=== PATIENT | female | born 1940 | race Caucasian/White ===

== ENCOUNTER 2016-09-06 07:54 | Observation (INO) | payer OTHER ==
[~2016-09-06] VITALS: Ht 162.6 cm; Wt 61.2 kg
--- NOTE | 2016-09-06 08:04 | NUR ---
PT TO ED WITH C/O NAUSEA AND VOMITING X 1, GAS AND BLOODY DIARRHEA X 12. PT ON COUMADIN 5MG DAILY FOR AFIB.
--- NOTE | 2016-09-06 08:11 | NUR ---
PT AMBULATORY TO RM 9, CHANGED INTO GOWN
[2016-09-06 08:36] LABS: ABSOLUTE BASOPHIL COUNT 0 /CUMM (0.0-0.2); ABSOLUTE EOSINOPHIL COUNT 0.1 /CUMM (0.0-0.7); ABSOLUTE GRANULOCYTE CT 8.7 /CUMM (1.4-6.5); ABSOLUTE LYMPH COUNT 1.5 /CUMM (1.2-3.4); ABSOLUTE MONOCYTE COUNT 0.9 /CUMM (0.10-0.60); BASOPHIL % 0.4 % (0.0-2.0); EOSINOPHIL % 0.7 % (0-5); GRANULOCYTE % 77.3 % (42.2-75.2); HEMATOCRIT 42.3 % (37-47); MEAN CORPUSCULAR HGB 30.6 PG (27.0-31.0); MEAN CORPUSCULAR HGB CONC 33.4 G/DL (33.0-37.0); MEAN CORPUSCULAR VOLUME 91.8 FL (81.0-99.0); MEAN PLATELET VOLUME 9.2 FL (7.4-10.4); PLATELET COUNT 174 /CUMM (130-400); RBC DISTRIBUTION WIDTH 12.8 % (11.5-14.5); RED BLOOD CELL CT 4.61 /CUMM (4.20-5.40); WHITE BLOOD CELL COUNT 11.3 /CUMM (4.8-10.8)
--- NOTE | 2016-09-06 08:37 | NUR ---
IV INITIATED, LABS DRAWN AND SENT. EKG IN PROGRESS
--- NOTE | 2016-09-06 08:47 | ED GI/GU/ABDOMINAL COMPLAINT ---
History of Present Illness General Chief Complaint: General Adult Stated Complaint: RECTAL BLEED Source: patient, old records Exam Limitations: no limitations Vital Signs & Intake/Output Vital Signs & Intake/Output Vital Signs Date Time Temp Pulse Resp B/P B/P Pulse O2 O2 Flow FiO2 Mean Ox Delivery Rate 09/06 1234 98.8 91 18 143/71 99 09/06 0803 96.3 92 20 151/85 98 Room Air Allergies Coded Allergies: shellfish derived (Severe, ANAPHYLAXIS 09/06/16) Penicillins (Intermediate, RASH 09/06/16) Reconcile Medications Calcium (Elemental-Fr Calcarb) (Calcium Carbonate) 600 MG CALCIUM (1,500 MG) TABLET 2 TAB PO DAILY SUPPLEMENT (Reported) Furosemide 20 MG TABLET 1 TAB PO DAILY WATER RETENTION (Reported) Metoprolol Succinate 100 MG TAB.ER.24H 0.5 TAB PO DAILY HEART (Reported) Multivitamin (Daily Multiple Vitamin) 1 EACH TABLET 1 TAB PO DAILY VITAMIN SUPPORT (Reported) Warfarin Sodium (Coumadin) 2.5 MG TABLET 2 TAB PO SuMoWeThFrSa BLOOD THINNER (Reported) Triage Note: PT TO ED WITH C/O NAUSEA AND VOMITING X 1, GAS AND BLOODY DIARRHEA X 12. PT ON COUMADIN 5MG DAILY FOR AFIB. Triage Nurses Notes Reviewed? yes ? n Is pt currently ? No HPI: Patient presents for evaluation of rectal bleeding that began yesterday. Patient states she initially experienced diffuse abdominal cramps and one episode of vomiting. She then had an onset of diarrhea with blood in it. She states it began as only a small amount but has now increased. She states that her most recent episode there was "quite a lot of blood". She denies any associated chest pain, dyspnea, fever, cold symptoms or prior episodes. She does currently take warfarin for atrial fibrillation. Past History Travel History Traveled to [place] past 21 day No Medical History Any Pertinent Medical History? see below for history Neurological: NONE EENT: allergies Cardiovascular: hypertension Respiratory: NONE Gastrointestinal: NONE Hepatic: NONE Renal: NONE Musculoskeletal: NONE Psychiatric: NONE Endocrine: NONE Blood Disorders: NONE Cancer(s): NONE Surgical History Surgical History: non-contributory Psychosocial History What is your primary language Azeri Tobacco Use: Never used ETOH Use: denies use Illicit Drug Use: denies illicit drug use Family History Hx Contributory? No Review of Systems Review of Systems Constitutional: Reports: no symptoms. EENTM: Reports: no symptoms. Respiratory: Reports: no symptoms. Cardiovascular: Reports: no symptoms. GI: Reports: see HPI. Genitourinary: Reports: no symptoms. Musculoskeletal: Reports: no symptoms. Skin: Reports: no symptoms. Neurological/Psychological: Reports: no symptoms. Hematologic/Endocrine: Reports: no symptoms. Immunologic/Allergic: Reports: no symptoms. All Other Systems: Reviewed and Negative Physical Exam Physical Exam Gastrointestinal: See below Comments: Gen.: Well-nourished, well-developed, no acute respiratory distress. Head: Normocephalic, atraumatic. Eyes: Normal inspection bilaterally Ears: Normal inspection bilaterally Nose: Normal inspection Throat/mouth : Moist mucosa Neck: Supple, full range of motion, no goiter Heart: Regular rate and rhythm, no murmurs rubs or gallops Lungs: Clear to auscultation bilaterally with normal air entry Chest: Nontender Back: Normal range of motion Abdomen: Soft, diffuse mild tenderness without rebound or guarding, nondistended , normal bowel sounds Rectal exam: No apparent hemorrhoids or anal fissures. Dried reddish blood in the area of the rectum and buttock crease. Extremities: Normal range of motion grossly, equal radial pulses, no cyanosis clubbing or edema Neurologic: Cranial nerves grossly intact, speech is clear Skin: warm and dry Psychiatric: Calm, cooperative, no apparent delusions or hallucinations Core Measures ACS in differential dx? No Severe Sepsis Present: No Septic Shock Present: No Progress Differential Diagnosis: ISCHEMIC BOWEL, DIVERTICULAR BLEED, POLYP, CANCER, INTERNAL HEMORRHOID Plan of Care: Orders Procedure Date/time Status Place in observation 09/06 1407 Active Add-on Test (ER Only) 09/06 0846 Active EKG 09/06 0830 Active LIPASE 09/06 0825 Complete PROTHROMBIN TIME 09/06 0824 Complete LACTIC ACID 09/06 08 Complete COMPREHENSIVE METABOLIC PANEL 09/06 0824 Complete CBC WITHOUT DIFFERENTIAL 09/06 08 Complete Laboratory Tests 09/06/16 1124: Lactic Acid Cancelled 09/06/16 0825: Anion Gap 8, Estimated GFR > 60, BUN/Creatinine Ratio 20.0, Glucose 98, Lactic Acid 1.1, Calcium 9.5, Total Bilirubin 1.2, AST 36, ALT 42, Alkaline Phosphatase 62, Total Protein 6.8, Albumin 4.3, Globulin 2.5, Albumin/Globulin Ratio 1.7, Lipase 106, PT 19.0 H, INR 1.82 H, CBC w Diff NO MAN DIFF REQ, RBC 4.61, MCV 91.8, MCH 30.6, RDW 12.8, MPV 9.2, Gran % 77.3 H, Lymphocytes % 13.3 L, Monocytes % 8.3, Eosinophils % 0.7, Basophils % 0.4, Absolute Granulocytes 8.7 H, Absolute Lymphocytes 1.5, Absolute Monocytes 0.9 H, Absolute Eosinophils 0.1 , Absolute Basophils 0, PUBS MCHC 33.4 Diagnostic Imaging: Discussed w/RAD: CT Scan. Radiology Impression: PATIENT: SUGAR BEGUM PRESENT AGE: 76 PATIENT ACCOUNT NO: [id number] : 41 LOCATION: [facility] ORDERING PHYSICIAN: SAWYER WILSON MD SERVICE DATE: 09/06/16 EXAM TYPE: CAT - CT ABD & PELVIS W IV CONTRAST EXAMINATION: CT ABDOMEN AND PELVIS WITH CONTRAST CLINICAL INFORMATION: Diffuse abdominal pain with rectal bleeding. COMPARISON: 11/20/2013 TECHNIQUE: Multidetector volumetric imaging was performed of the abdomen and pelvis before and after the IV administration of 95 mL of Optiray 320 intravenous contrast. Sagittal and coronal reformatted images were obtained on the technologist's workstation. DLP: 288 mGy-cm FINDINGS: LUNG BASES : The lung bases are clear. The heart is enlarged. LIVER, GALLBLADDER, AND BILIARY TREE: The liver is normal in size, shape, and attenuation. No focal hepatic lesion or biliary ductal dilatation is present. The gallbladder is unremarkable with no evidence of radiopaque gallstones, gallbladder wall thickening, or obvious pericholecystic inflammatory changes. PANCREAS: Unremarkable. SPLEEN: Unremarkable. ADRENAL GLANDS: Unremarkable. KIDNEYS AND URETERS: The kidneys are normal in size, shape, and attenuation. No hydronephrosis, hydroureter, or calculi seen. No perinephric stranding. 1 cm left lower pole renal cyst. BLADDER: Unremarkable. GASTROINTESTINAL TRACT: The stomach and small bowel are unremarkable. No dilated loops of bowel or evidence of obstruction. There is colonic wall thickening involving the descending colon and splenic flexure. Adjacent inflammatory appearance. No free air or free fluid. ABDOMINAL WALL: No significant hernia is appreciated. LYMPH NODES: Normal. VASCULAR: Mild atherosclerotic calcification. Circumaortic left renal vein. PELVIC VISCERA: The uterus is not seen. No adnexal mass. OSSEOUS STRUCTURES: No acute or suspicious osseous abnormality. Mild degenerative changes of the spine. IMPRESSION: Wall thickening and inflammation of the descending colon suggestive of a nonspecific colitis, favoring infectious or inflammatory. DICTATED BY: AIDAN MOREL MD DATE/TIME DICTATED:09/06/16920 DIGITAL PRODUCTION ARTIST:EZRA DATE/TIME TRANSCRIBED:09/06/16920 CONFIDENTIAL, DO NOT COPY WITHOUT APPROPRIATE AUTHORIZATION. <Electronically signed in Other Vendor System> SIGNED BY: ADRIEL GALLARDO,AIDAN 09/06/16926 Initial ED EKG: NSR Prior EKG: unchanged Comments: 09/06/2016 11:19:44 AM patient's case discussed with Dr. San feels the patient should be admitted for symptomatic treatment IV fluids and prep for sigmoidoscopy. Departure Departure Disposition: STILL A PATIENT Condition: Stable Clinical Impression Primary Impression: Ischemic colitis Referrals: TOYA GALLARDO,JACQUIE Leach (PCP/Family) Departure Forms: Customer Survey General Discharge Information Observation Note Spoke With: AYDEE GALLARDO,JEANMARIE Physician Advisor Notified: ELVIS GALLARDO,MACO Nguyen Place Patient In: Non-ED OBS Care Area Rationale for Observation: My rational for observation is as follows patient is experiencing ischemic colitis likely due to decrease in blood flow to an area of the bowel. This places the bowel at risk of worsening colitis, bleeding and infarct. In order to prevent this IV fluids should be administered to enhance's intestinal bloodflow and to reverse the colitis. The patient's worsening bloody diarrhea and associated fluid losses has compromised her overall functional capabilities, making her an unreliable outpatient candidate. I feel she would have considerable difficulty in complying with outpatient treatment and may in fact return in worse clinical condition. At this point I feel she needs IV fluids to reestablish intestinal bloodflow and monitoring of intake and output and overall fluid balance. Hematocrit and hemoglobins should be followed for acute blood loss. Vital signs that should be followed for orthostatic hypotension or tachycardia. GI consultation should be obtained for consideration of sigmoidoscopy or colonoscopy.
[2016-09-06] MEDS ORDERED: METOPROLOL SUC100 M2 PO (08:54)
[2016-09-06] MEDS ORDERED: COUMADIN2.5 M1 PO ×2 (08:55)
[2016-09-06] MEDS ORDERED: DAILY MULTIPLE1 EACH PO (08:56)
[2016-09-06] MEDS ORDERED: FUROSEMIDE20 M1 PO (08:56)
[2016-09-06] MEDS ORDERED: CALCIUM CARBON600 M1 PO (08:56)
--- NOTE | 2016-09-06 09:27 | CT SCAN REPORT ---
EXAMINATION: CT ABDOMEN AND PELVIS WITH CONTRAST CLINICAL INFORMATION: Diffuse abdominal pain with rectal bleeding. COMPARISON: 11/20/2013 TECHNIQUE: Multidetector volumetric imaging was performed of the abdomen and pelvis before and after the IV administration of 95 mL of Optiray 320 intravenous contrast. Sagittal and coronal reformatted images were obtained on the technologist's workstation. DLP: 288 mGy-cm FINDINGS: LUNG BASES: The lung bases are clear. The heart is enlarged. LIVER, GALLBLADDER, AND BILIARY TREE: The liver is normal in size, shape, and attenuation. No focal hepatic lesion or biliary ductal dilatation is present. The gallbladder is unremarkable with no evidence of radiopaque gallstones, gallbladder wall thickening, or obvious pericholecystic inflammatory changes. PANCREAS: Unremarkable. SPLEEN: Unremarkable. ADRENAL GLANDS: Unremarkable. KIDNEYS AND URETERS: The kidneys are normal in size, shape, and attenuation. No hydronephrosis, hydroureter, or calculi seen. No perinephric stranding. 1 cm left lower pole renal cyst. BLADDER: Unremarkable. GASTROINTESTINAL TRACT: The stomach and small bowel are unremarkable. No dilated loops of bowel or evidence of obstruction. There is colonic wall thickening involving the descending colon and splenic flexure. Adjacent inflammatory appearance. No free air or free fluid. ABDOMINAL WALL: No significant hernia is appreciated. LYMPH NODES: Normal. VASCULAR: Mild atherosclerotic calcification. Circumaortic left renal vein. PELVIC VISCERA: The uterus is not seen. No adnexal mass. OSSEOUS STRUCTURES: No acute or suspicious osseous abnormality. Mild degenerative changes of the spine. IMPRESSION: Wall thickening and inflammation of the descending colon suggestive of a nonspecific colitis, favoring infectious or inflammatory.
--- NOTE | 2016-09-06 13:37 | Cons- Gastroenterology ---
General Information and HPI Consulting Request Date of Consult: 09/06/16 Requested By: Osman Dimas MD Reason for Consult: Rectal bleeding, colitis on ct scan. Source of Information: patient, old records Exam Limitations: no limitations History of Present Illness: Ms. Santiago is a 76 year old female with a history of afib on coumadin who came into [facility] this morning for rectal bleeding and lower addominal pain. She drove home from her sons house in [place] and on arriving home she developed abdominal pain in her lower abdomen and this was associated with nausea and bilious vomiting. Shortly after the pain started she began having bloody diarrhea. She had about a dozen bloody bowel movements throughout the night and then she came to the ER for further evaluation this morning. Her last bloody bowel movement was this morning and she notes that since arrival to the ER she hasn't had any bowel movements but she has been passing gas. She denies having similar symptoms like this in the past. She has not had any fevers at home, she has not had any sick contacts, she hasn't had any recent foreign travel, been on antibiotics recently and she can't recall anything she may have eaten which may have been improperly prepared. In the ER she has been hemodynamically stable. Allergies/Medications Allergies: Coded Allergies: shellfish derived (Severe, ANAPHYLAXIS 09/06/16) Penicillins (Intermediate, RASH 09/06/16) Home Med List: Calcium (Elemental-Fr Calcarb) (Calcium Carbonate) 600 MG CALCIUM (1,500 MG) TABLET 2 TAB PO DAILY SUPPLEMENT (Reported) Furosemide 20 MG TABLET 1 TAB PO DAILY WATER RETENTION (Reported) Metoprolol Succinate 100 MG TAB.ER.24H 0.5 TAB PO DAILY HEART (Reported) Multivitamin (Daily Multiple Vitamin) 1 EACH TABLET 1 TAB PO DAILY VITAMIN SUPPORT (Reported) Warfarin Sodium (Coumadin) 2.5 MG TABLET 2 TAB PO SuMoWeThFrSa BLOOD THINNER (Reported) Current Medications: Current Medications Sig/Home Start time Last Medication Dose Route Stop Time Status Admin Sodium Chloride 500 ML BOLUS ONE 09/06 0900 DC 09/06 IV 09/06 7588 1726 Past History Travel History Traveled to [place] past 21 day No Medical History Neurological: NONE EENT: allergies Cardiovascular: hypertension Respiratory: NONE Gastrointestinal: NONE Hepatic: NONE Renal: NONE Musculoskeletal: NONE Psychiatric: NONE Endocrine: NONE Blood Disorders: NONE Cancer(s): NONE Surgical History Surgical History: non-contributory Psychosocial History ETOH Use: denies use Illicit Drug Use: denies illicit drug use Review of Systems Review of Systems Constitutional: Denies: fever, malaise, weakness, unexplained weight loss. EENTM: Denies: no symptoms. Cardiovascular: Denies: no symptoms. Respiratory: Denies: no symptoms. GI: Reports: see HPI. Genitourinary: Denies: no symptoms. Musculoskeletal: Denies: no symptoms. Skin: Denies: no symptoms. Neurological/Psychological: Denies: no symptoms. Hematologic/Endocrine: Reports: bleeding. Immunologic/Allergic: Denies: no symptoms. All Other Systems: Reviewed and Negative Exam & Diagnostic Data Vital Signs and I&O Vital Signs Date Time Temp Pulse Resp B/P B/P Pulse O2 O2 Flow FiO2 Mean Ox Delivery Rate 09/06 1234 98.8 91 18 143/71 99 09/06 0803 96.3 92 20 151/85 98 Room Air Intake & Output 09/06 1600 09/06 0400 09/05 1600 09/05 0400 09/04 1600 09/04 0400 Intake Total 500 Output Total Balance 500 Intake, IV 500 Patient 135 lb Weight Weight Reported by Patient Measurement Method Physical Exam General Appearance: well developed/nourished, no apparent distress, alert, comfortable Head: atraumatic, normal appearance Eyes: Bilateral: normal appearance. Ears, Nose, Throat: normal pharynx, normal ENT inspection Neck: normal inspection, supple, full range of motion Respiratory: normal breath sounds, chest non-tender, no respiratory distress Cardiovascular: irregularly irregular Gastrointestinal: normal bowel sounds, soft, tenderness Rectal: deferred Extremities: normal inspection, normal capillary refill, no edema Neurologic/Psych: no motor/sensory deficits, awake, alert, oriented x 3 Skin: intact, normal color, warm/dry Results Pertinent Lab Results: Laboratory Tests 09/06 09/06 1124 0825 Chemistry Sodium (137 - 145 mmol/L) 141 Potassium (3.5 - 5.1 mmol/L) 3.8 Chloride (98 - 107 mmol/L) 106 Carbon Dioxide (22 - 30 mmol/L) 27 Anion Gap (5 - 16) 8 BUN (7 - 17 mg/dL) 14 Creatinine (0.5 - 1.0 mg/dL) 0.7 Estimated GFR (>60 ml/min) > 60 BUN/Creatinine Ratio (7 - 25 %) 20.0 Glucose (65 - 99 mg/dL) 98 Lactic Acid (0.7 - 2.1 mmol/L) Cancelled 1.1 Calcium (8.4 - 10.2 mg/dL) 9.5 Total Bilirubin (0.2 - 1.3 mg/dL) 1.2 AST (14 - 36 U/L) 36 ALT (9 - 52 U/L) 42 Alkaline Phosphatase (<127 U/L) 62 Total Protein (6.3 - 8.2 g/dL) 6.8 Albumin (3.5 - 5.0 g/dL) 4.3 Globulin (1.9 - 4.2 gm/dL) 2.5 Albumin/Globulin Ratio (1.1 - 2.2 %) 1.7 Lipase (23 - 300 U/L) 106 Coagulation PT (9.4 - 12.5 SEC) 19.0 H INR (0.90 - 1.19) 1.82 H Hematology CBC w Diff NO MAN DIFF REQ WBC (4.8 - 10.8 /CUMM) 11.3 H RBC (4.20 - 5.40 /CUMM) 4.61 Hgb (12.0 - 16.0 G/DL) 14.1 Hct (37 - 47 %) 42.3 MCV (81.0 - 99.0 FL) 91.8 MCH (27.0 - 31.0 PG) 30.6 RDW (11.5 - 14.5 %) 12.8 Plt Count (130 - 400 /CUMM) 174 MPV (7.4 - 10.4 FL) 9.2 Gran % (42.2 - 75.2 %) 77.3 H Lymphocytes % (20.5 - 51.1 %) 13.3 L Monocytes % (1.7 - 9.3 %) 8.3 Eosinophils % (0 - 5 %) 0.7 Basophils % (0.0 - 2.0 %) 0.4 Absolute Granulocytes (1.4 - 6.5 /CUMM) 8.7 H Absolute Lymphocytes (1.2 - 3.4 /CUMM) 1.5 Absolute Monocytes (0.10 - 0.60 /CUMM) 0.9 H Absolute Eosinophils (0.0 - 0.7 /CUMM) 0.1 Absolute Basophils (0.0 - 0.2 /CUMM) 0 PUBS MCHC (33.0 - 37.0 G/DL) 33.4 Imaging/Other Studies: SERVICE DATE: 09/06/16 EXAM TYPE: CAT - CT ABD & PELVIS W IV CONTRAST EXAMINATION: CT ABDOMEN AND PELVIS WITH CONTRAST CLINICAL INFORMATION: Diffuse abdominal pain with rectal bleeding. COMPARISON: 11/20/2013 TECHNIQUE: Multidetector volumetric imaging was performed of the abdomen and pelvis before and after the IV administration of 95 mL of Optiray 320 intravenous contrast. Sagittal and coronal reformatted images were obtained on the technologist's workstation. DLP: 288 mGy-cm FINDINGS: LUNG BASES: The lung bases are clear. The heart is enlarged. LIVER, GALLBLADDER, AND BILIARY TREE: The liver is normal in size, shape, and attenuation. No focal hepatic lesion or biliary ductal dilatation is present. The gallbladder is unremarkable with no evidence of radiopaque gallstones, gallbladder wall thickening, or obvious pericholecystic inflammatory changes. PANCREAS: Unremarkable. SPLEEN: Unremarkable. ADRENAL GLANDS: Unremarkable. KIDNEYS AND URETERS: The kidneys are normal in size, shape, and attenuation. No hydronephrosis, hydroureter, or calculi seen. No perinephric stranding. 1 cm left lower pole renal cyst. BLADDER: Unremarkable. GASTROINTESTINAL TRACT: The stomach and small bowel are unremarkable. No dilated loops of bowel or evidence of obstruction. There is colonic wall thickening involving the descending colon and splenic flexure. Adjacent inflammatory appearance. No free air or free fluid. ABDOMINAL WALL: No significant hernia is appreciated. LYMPH NODES: Normal. VASCULAR: Mild atherosclerotic calcification. Circumaortic left renal vein. PELVIC VISCERA: The uterus is not seen. No adnexal mass. OSSEOUS STRUCTURES: No acute or suspicious osseous abnormality. Mild degenerative changes of the spine. IMPRESSION: Wall thickening and inflammation of the descending colon suggestive of a nonspecific colitis, favoring infectious or inflammatory. Assessment/Plan Assessment/Recommendations: Assessment: is a 76-year-old female with history of atrial fibrillation on anticoagulation who presents with acute onset of abdominal pain and bloody diarrhea which is most likely secondary to an attack of ischemic colitis. The diagnosis of ischemic colitis is supported by her history of acute onset of symptoms which are resolving without any signficant interevntions and is associated with inflammation around her splenic flexure on ct scan which is a watershed area susceptible to a low-flow state from dehydrated and subsequently taking her antihypertensive medication. She is currently hemodynamically stable and I suspect she will continue to impove with supportive care. As it has been about 10 years since her last colonoscopy she is due for a full colonoscopy now which I will plan to do as an outpatient and I will also plan to perform a diagnostic flexible sigmoidoscopy while she is here to confirm the diagnosis and rule out any other pathology that may explain her current symptoms such as IBD. Recommendations: 1. Admit to medical service and keep on full liquid diet with nothing red administered and would keep NPO after midnight for a diagnostic flexible sigmoidoscopy to be performed tomorrow. 2. Follow CBC q12hr and transfuse as needed to keep her hgb > 8 3. Hold coumadni for now, but if no active bleeding on flex sig tomorrow will likely recommend restarting it then 4. Notify GI for signs of hemodynamically signficant overt GI bleeding 5. IV hyration and monitory BP and hold anti-hypertensives for any signfiicat hypotension 6. Will tentatively plan to pursue an outpatient colonoscopy I will continue to follow this patient and make further recommendations based on her clinical course and results of her flex sig to be done tomorrow. Copies To: TOYA GALLARDO,JACQUIE Madden. Consult Acknowledgment - Thank you for your consult request.
--- NOTE | 2016-09-06 13:53 | NUR ---
PT RESTING IN BED AT THIS TIME, RESP EVEN AND NONLABORED, EQUAL RISE AND FALL OF THE CHEST AND IN NAD. DENIES DISCOMFORT. AWAITING POC.
--- NOTE | 2016-09-06 14:18 | History & Physical ---
General Information and HPI Source of Information: patient, old records Exam Limitations: no limitations Allergies/Medications Allergies: Coded Allergies: shellfish derived (Severe, ANAPHYLAXIS 09/06/16) Penicillins (Intermediate, RASH 09/06/16) Home Med list Calcium (Elemental-Fr Calcarb) (Calcium Carbonate) 600 MG CALCIUM (1,500 MG) TABLET 2 TAB PO DAILY SUPPLEMENT (Reported) Furosemide 20 MG TABLET 1 TAB PO DAILY WATER RETENTION (Reported) Metoprolol Succinate 100 MG TAB.ER.24H 0.5 TAB PO DAILY HEART (Reported) Multivitamin (Daily Multiple Vitamin) 1 EACH TABLET 1 TAB PO DAILY VITAMIN SUPPORT (Reported) Warfarin Sodium (Coumadin) 2.5 MG TABLET 2 TAB PO SuMoWeThFrSa BLOOD THINNER (Reported) Warfarin Sodium (Coumadin) 2.5 MG TABLET 1.5 TAB PO Tu BLOOD THINNER ( Reported) Past History Travel History Traveled to [place] past 21 day No Medical History Neurological: NONE EENT: allergies Cardiovascular: hypertension Respiratory: NONE Gastrointestinal: NONE Hepatic: NONE Renal: NONE Musculoskeletal: NONE Psychiatric: NONE Endocrine: NONE Blood Disorders: NONE Cancer(s): NONE Surgical History Surgical History: non-contributory Past Family/Social History Psychosocial History ETOH Use: denies use Illicit Drug Use: denies illicit drug use
--- NOTE | 2016-09-06 15:14 | History & Physical ---
KACY BRUSH 09/06/16 1513: General Information and HPI MD Statement: I have seen and personally examined SUGAR SANTIAGO and documented this H&P. The patient is a 76 year old F who presented with a patient stated chief complaint of [abdominal pain and bloody stool]. Source of Information: patient, old records Exam Limitations: no limitations History of Present Illness: Mrs Santiaog is a 76 y/o lady with a PMH of atrial fibrillation on Coumadin, metoprolol for rate control followed by Dr. Mejia and Dr. Mccormick, atrial septal defect status post repair in 1994, Golden's anomaly, osteopenia, bladder cancer status post tumor removal with once a year follow-up at [facility] who presents with complaints of abdominal pain and bloody stool. She returned from a trip to [place] on Tuesday and reports that on her drive back she started experiencing lower abdominal discomfort with what she described as cramping/pinching sensation. Symptoms worsened as the day progressed to constant cramping lower abdominal pain, nonradiating that increased to intensity of 10/10. This was also associated with urge to use the bathroom on one episode of nonbloody emesis, approximately 12 episodes of loose/liquid diarrhea followed by persistent urge to defecate and subsequent passage of bright red/dark red stool with clots. She contacted her PCP who advised her to hold off taking her nightly Coumadin and follow up in the morning if symptoms persist. She denies any sick contacts, new foods out of the ordinary, fevers, chills, dizziness, blurry vision, chest pain, shortness of breath, recurrence of nausea, numbness or weakness in any of her extremities. She does endorse occasional palpitations during this episodes of bloody stool but does have a history of occasional palpitations associated with her atrial fibrillation. Patient endorses a history of occasional constipation well-controlled with diet. Allergies/Medications Allergies: Coded Allergies: shellfish derived (Severe, ANAPHYLAXIS 09/06/16) Penicillins (Intermediate, RASH 09/06/16) Home Med list Calcium (Elemental-Fr Calcarb) (Calcium Carbonate) 600 MG CALCIUM (1,500 MG) TABLET 2 TAB PO DAILY SUPPLEMENT (Reported) Furosemide 20 MG TABLET 1 TAB PO DAILY WATER RETENTION (Reported) Metoprolol Succinate 100 MG TAB.ER.24H 0.5 TAB PO DAILY HEART (Reported) Multivitamin (Daily Multiple Vitamin) 1 EACH TABLET 1 TAB PO DAILY VITAMIN SUPPORT (Reported) Warfarin Sodium (Coumadin) 2.5 MG TABLET 2 TAB PO SuMoWeThFrSa BLOOD THINNER (Reported) Warfarin Sodium (Coumadin) 2.5 MG TABLET 1.5 TAB PO Tu BLOOD THINNER ( Reported) Past History Travel History Traveled to [place] past 21 day No Medical History Neurological: NONE EENT: allergies Cardiovascular: AFIB, atrial septal defect S/P repair in 1994. Golden's anomaly Respiratory: NONE Gastrointestinal: NONE Hepatic: NONE Renal: NONE Musculoskeletal: NONE Psychiatric: NONE Endocrine: osteopenia Blood Disorders: NONE Cancer(s): bladder cancer Surgical History Surgical History: appendectomy, tonsillectomy Past Family/Social History Psychosocial History Where do you live? Home Primary Language: Bengali Smoking Status: Never Smoked ETOH Use: denies use Illicit Drug Use: denies illicit drug use Functional Ability ADLs Independent: dressing, eating, toileting, bathing. Ambulation: independent IADLs Independent: shopping, housework, finances, food prep, telephone, transportation , medication admin. Review of Systems Review of Systems Constitutional: Reports: see HPI. EENTM: Reports: no symptoms. Cardiovascular: Reports: see HPI. Respiratory: Reports: no symptoms. GI: Reports: see HPI. Genitourinary: Reports: no symptoms. Musculoskeletal: Reports: no symptoms. Skin: Reports: no symptoms. Neurological/Psychological: Reports: no symptoms. Hematologic/Endocrine: Reports: no symptoms. Exam & Diagnostic Data Last 24 Hrs of Vital Signs/I&O Vital Signs Date Time Temp Pulse Resp B/P B/P Pulse O2 O2 Flow FiO2 Mean Ox Delivery Rate 09/06 1234 98.8 91 18 143/71 99 09/06 0803 96.3 92 20 151/85 98 Room Air Intake & Output 09/06 1600 09/06 0800 09/06 0000 Intake Total 500 Output Total Balance 500 Intake, IV 500 Patient 135 lb 135 lb Weight Weight Reported by Patient Reported by Patient Measurement Method Physical Exam General Appearance Alert, Cooperative, No Acute Distress Skin No Rashes, No Breakdown Skin Temp/Moisture Exam: Warm/Dry Sepsis Skin Exam (color): Normal for Ethnicity HEENT EOMI, Mucous Membr. moist/pink Cardiovascular Normal S1, Normal S2, irregularly irregular Lungs Clear to Auscultation, Normal Air Movement Abdomen Normal Bowel Sounds, Soft, tenderness appreciated on palpation of both upper left and right quadrants and epigastric regions. Neurological Normal Speech, Normal Tone Extremities No Edema, Normal Pulses Vascular Pulses Symmetrical Diagnostic Data Other Results CT abdomen and pelvis without IV contrast: Wall thickening and inflammation of the descending colon suggestive of a nonspecific colitis, favoring infectious or inflammatory. Assessment/Plan Assessment: 76 y/o lady with a PMH of atrial fibrillation on Coumadin, metoprolol for rate control followed by Dr. Mejia and Dr. Mccormick, atrial septal defect status post repair in 1994, Golden's anomaly, osteopenia, bladder cancer status post tumor removal with once a year follow-up at [facility] who presents with complaints of abdominal pain and bloody stool. Symptoms started on Tuesday with lower abdominal discomfort ascribed as a cramping/pinching sensation that worsened as the day progressed to an intensity of 10/10 that declined to 5/10 on arrival in the ED, persistent cramping, nonradiating, no alleviating/exacerbating factors, subsequently followed by 12 episodes of liquid diarrhea and eventually right red/dark red stool with clots. VS on admission: BP 151/85, HR 92, RR 20, SPO2 98% on RA, T 96.3 Pertinent labs on admission: WBC 11.3, H&H 14.1/42.3, platelets 174K, sodium 141 , potassium 3.8, chloride 106, bicarbonate 27, BUN/CR 14/0.7, glucose 98 INR: 1.82 Problem list: 1. Colitis 2. Bright red blood per rectum 3. History of atrial fibrillation on Coumadin 4. SIRS criteria: HR 92, RR 20 5. History of ASD S/P repair in 1994, Golden's anomaly Plan: * We'll admit to general medicine floor for management of what appears to be a colitis. Etiology could be secondary to dehydration versus embolic event with a subtherapeutic INR versus adhesions with her history of hysterectomy. * We'll start her on maintenance fluid NS at 100 mL an hour. Repeat lactic acid despite a normal initial lactic acid level. Type and screen * Clear liquids per recommendation of gastroenterolog (Dr. San). If worsening pain, will make the patient NPO. If patient spikes fever, obtained blood cultures and consider empiric treatment with ceftriaxone and metronidazole * Will contact Dr. Mejia to obtain the latest echocardiogram. We'll also obtain his recommendations with regards to maintaining subtherapeutic INR versus bridging with heparin. Status post procedure, Coumadin dosing for INR between 2 and 3 * Holding furosemide and metoprolol at this time. If patient does become tachycardic we'll give her half her normal dose of metoprolol succinate for rate control while monitoring blood pressure * Heart healthy diet * DVT prophylaxis: Currently on Coumadin. ALPs * Full code As Ranked By This Provider Problem List: 1. Ischemic colitis 2. BRBPR (bright red blood per rectum) 3. A-fib 4. SIRS (systemic inflammatory response syndrome) Core Measures/Miscellaneous Acute Coronary Syndrome ACS Diagnosis: No Cerebrovascular Accident CVA/TIA Diagnosis: No Congestive Heart Failure CHF Diagnosis: No VTE (View Protocol) VTE Risk Factors: Age > 40 No [facility] VTE prophylaxis d/t: No contraindications No VTE Pharm Prophylaxis d/t: No contraindications VTE Diagnosis: No VTE Type: NONE VTE Confirmed by (Test): NONE Sepsis (View Protocol) Severe Sepsis Present: No Septic Shock Septic Shock Present: No Miscellaneous Documentation Attending Case Discussed With: JEANMARIE BAJWA MD Primary Care Physician: JACQUIE PITTMAN MD Patient sees these Specialists Dr San Level of Patient Care: General Medicine Resident Review Statement Resident Statement: examined this patient, discussed with tech intern, agreed with tech intern, discussed with family, reviewed EMR data (avail), discussed with nursing , reviewed images JEANMARIE BAJWA MD 09/06/161914: Attending MD Review Statement Attending Statement Attending MD Statement: examined this patient, discuss w/resident/PA/AIR QUALITY CONSULTANT, agreed w/resident/PA/AIR QUALITY CONSULTANT, reviewed EMR data (avail) Attending Assessment/Plan: 76F PMH atrial fibrillation on Coumadin, ASD s/p repair in 1994, Golden's anomaly, osteopenia, bladder cancer status post tumor removal presenting with one day of bloody diarrhea. Patient currently feels well aside from a sensation of abdominal bloating. She had 12 episodes of loose stools over the past 2 days which became more and more bloody. Recently traveled to [place]. Did not drink unsafe water or swim in lakes. She currently feels well overall, is afebrile, normal vitals, labs unremarkable. CT abdomen is suspicious for colitis. 1. Colitis 2. Hematochezia Plan - Observation in general medicine - GI consult - Full liquid diet, NPO overnight - Fleet enema x2 tomorrow morning - Flexible sigmoidoscopy tomorrow - Follow GI recommendations - Monitor CBC q8h - Hold off antibiotics for now, if febrile, hemodynamically unstable, or leukocytosis will start antibiotics - Continue home medications, hold anti-coagulation and anti-hypertensives - ALPS for DVT PPx Observation status justified as patient will require short term CBC monitoring and flexible sigmoidoscopy tomorrow, likely discharge post-procedure if hemodynamcailly stable and no further bleeding or drop in Hct.
--- NOTE | 2016-09-06 16:17 | NUR ---
ADMISSION FLUIDS HUNG AT 75ML/HR PER APR.
--- NOTE | 2016-09-06 16:20 | NUR ---
NEFF AND PINK DRAWN AND SENT TO LAB
--- NOTE | 2016-09-06 19:00 | NUR ---
PT TO 210 BED 1
--- NOTE | 2016-09-06 19:30 | NUR ---
PT ASKED ABOUT FOOD. DR. MOORE PAGED AT #[phone] TWICE TO OBTAIN DIET ORDER.
--- NOTE | 2016-09-06 19:33 | NUR ---
PT AMBULATORY TO BATHROOM WITH STEADY GAIT AND ADMISSION FLUIDS RUNNING. HAVE PAGED MD FOR DIET ORDER PER PT REQUEST.
--- NOTE | 2016-09-06 19:42 | NUR ---
REPORT TO CHRISTAL BARAJAS AND ANSWERED ALL QUESTIONS. PT GCS 15. TRANSPORTED BOOKED.
[2016-09-06 20:04] VITALS: BP 138/92
--- NOTE | 2016-09-06 22:59 | NUR ---
PT ARRIVED TO FLOOR VIA STRETCHER, AMBULATED TO BED WITHOUT ASSISTANCE, IVF INFUSING PER ORDERS, VSS. ORDER RECIEVED FOR CLEAR LIQUID DIET, NURSE SENIOR APPLICATIONS ANALYST TO GET PT TRAY. PER ER REPORT PT GOING FOR SIGMOIDOSCOPY TOMORROW. PT TO BE MADE NPO AT MIDNIGHT, DOCUMENT PHOTOGRAPHER QUESTIONED TO WHETHER PT NEEDS PREP PRIOR TO GOING. WILL CONTINUE TO MONITOR.
[2016-09-07 06:42] VITALS: BP 140/92
--- NOTE | 2016-09-07 07:17 | PN- Housestaff ---
See Addendum Subjective Follow-up For: Colitis Subjective: Patient was stable this morning. She took tylynol at night for abdominal pain and was able to sleep through the night. Denies any overnight events, fever, chills, nausea, vomiting, SOB or chest pain. she does report 2 bowel movements similar to the ones she had at home. Review of Systems Constitutional: Denies: no symptoms. EENTM: Denies: no symptoms. Cardiovascular: Denies: no symptoms. Respiratory: Denies: no symptoms. Gastrointestinal: Reports: diarrhea. Genitourinary: Denies: no symptoms. Musculoskeletal: Denies: no symptoms. Skin: Denies: no symptoms. Neurological/Psychological: Denies: no symptoms. Objective Last 24 Hrs of Vital Signs/I&O Vital Signs Date Time Temp Pulse Resp B/P B/P Pulse O2 O2 Flow FiO2 Mean Ox Delivery Rate 09/07 1433 98.0 99 18 142/78 98 Room Air 09/07 1222 98.4 98 20 118/76 100 Room Air 09/07 0642 97.8 67 20 140/92 97 Room Air 09/06 2004 98.1 81 19 138/92 97 09/06 1941 82 16 135/87 98 Room Air 09/06 1759 98.8 94 16 135/71 99 Room Air Intake & Output 09/07 1600 09/07 0800 09/07 0000 Intake Total 600 600 150 Output Total Balance 600 600 150 Intake, IV 600 600 150 Number 2 0 Bowel Movements Patient 135 lb 135 lb Weight Weight Reported by Patient Measurement Method Physical Exam General Appearance: Alert, Oriented X3, Cooperative, No Acute Distress Skin: No Rashes, No Breakdown Sepsis Skin Exam (color): Normal for Ethnicity HEENT: Atraumatic, PERRLA, EOMI, Mucous Membr. moist/pink Neck: Supple, No JVD, No thryomegaly Cardiovascular: Normal S1, Normal S2 Lungs: Clear to Auscultation, Normal Air Movement Abdomen: Normal Bowel Sounds, Soft Neurological: Normal Gait, Normal Speech, Strength at 5/5 X4 Ext, Normal Tone, Sensation Intact Extremities: No Clubbing, No Cyanosis, No Edema, Normal Pulses Current Medications: Current Medications Sig/Home Start time Last Medication Dose Route Stop Time Status Admin Acetaminophen 650 MG Q6P PRN 09/06 1500 AC 09/06 PO 2019 Calcium Carbonate 1,250 MG DAILY 09/07 1000 AC PO Chlorhexidine 1 GM .STK-MED ONE 09/07 1434 DC Gluconate TOP 09/07 1435 Multivitamins 1 TAB DAILY 09/07 1000 AC Therapeutic PO Oxycodone/ 1 TAB Q6P PRN 09/06 1500 AC Acetaminophen PO Oxycodone/ 2 TAB Q6P PRN 09/06 1500 AC Acetaminophen PO Patient Medication 1 ED .STK-MED ONE 09/07 1426 DC Teaching ED 09/07 1427 Sodium Chloride 1,000 ML Q13H 09/06 1545 DC 09/07 IV 0911 Sodium Phosphate 1 UNIT ONCE ONE 09/07 0930 DC 09/07 CA 09/07 0931 1122 Sodium Phosphate 1 UNIT ONCE ONE 09/07 0930 DC 09/07 CA 09/07 0931 1204 Warfarin Sodium 5 MG [id number]@[id number] 09/08 1700 CAN PO Warfarin Sodium 7.5 MG ONCE ONE 09/07 1700 AC PO 09/07 1701 Last 24 Hrs of Lab/Hira Results Last 24 Hrs of Labs/Mics: Laboratory Tests 09/07/16 0715: PT 15.9 H, INR 1.52 H, CBC w Diff NO MAN DIFF REQ, RBC 4.37, MCV 92.9, MCH 30.8, RDW 13.1, MPV 9.4, Gran % 70.2, Lymphocytes % 18.7 L, Monocytes % 8.1, Eosinophils % 2.4, Basophils % 0.6, Absolute Granulocytes 4.8, Absolute Lymphocytes 1.3, Absolute Monocytes 0.6, Absolute Eosinophils 0.2, Absolute Basophils 0, PUBS MCHC 33.1 09/06/16 1617: Lactic Acid 0.8 Assessment/Plan Assessment: Colitis: Etiology could be secondary to dehydration versus embolic event with a subtherapeutic INR versus adhesions with her history of hysterectomy. * patient was started on maintenance fluid NS at 100 mL an hour. Repeat lactic acid despite a normal initial lactic acid level. Type and screen * Clear liquids per recommendation of gastroenterolog (Dr. San). If patient spikes fever, obtained blood cultures and consider empiric treatment with ceftriaxone and metronidazole. * S/P sigmoidoscopy(09/07/2016): Impression: 1. Findings consistent with mild/resolving ischemic colitis status post biopsies. 2. Sigmoid diverticulosis. 3. Small internal hemorrhoids. 4. Solid stool in the proximal transverse colon as patient only received enemas for preparation so the scope was not advanced further. Patient will be following up with Dr. San for the biopsy report and also set up an appointment for outpatient colonoscopy. History of atrial fibrillation on Coumadin Pertinent information was obtained from Dr. Mejia regarding the latest echocardiogram. Her INR today is 1.52. we will give her 1 dose of 7.5mg coumadin and continue with her home dose of 5mg on discharge. Patient was told to repeat her INR in 3 days and follow up with Dr. Mejia within a week. Hypertension: Her antihypertensive meds were held in context of bleeding per rectum. Will restart her home dose today. History of ASD S/P repair in 1994, Golden's anomaly Problem List: 1. Ischemic colitis 2. BRBPR (bright red blood per rectum) 3. A-fib Pain Ratin Pain Location: Abdomen Pain Goal: Remain pain free Pain Plan: Pain Pathway Tomorrow's Labs & Rationales: None(Discharge)
--- NOTE | 2016-09-07 07:17 | PN- Student ---
Subjective Subjective: She slept fairly well but had a lot of Afib overnight. She had no bowel movements but when she passed flatus she was not seeing any blood. Aside from liquids that she was given as part of her diet plan she has not eaten anything. Today she is due for a sigmoidscopy. Objective Objective: Physical exam: Vitals: 6:00 am: Temp(oral): 97.2, RR:18, O2stat: 97RA, BP: 151/67, pulse rate: 92. General appearance: CV: Irregularly, iregular rhythm, Normal S1,S2, No R/G, 2/6 murmur on left sternal border Lungs:CTA BL Abd: Ext: Results Results: Laboratory Tests 09/06/16 1617: Lactic Acid 0.8 09/06/16 1124: Lactic Acid Cancelled 09/06/16 0825: Anion Gap 8, Estimated GFR > 60, BUN/Creatinine Ratio 20.0, Glucose 98, Lactic Acid 1.1, Calcium 9.5, Total Bilirubin 1.2, AST 36, ALT 42, Alkaline Phosphatase 62, Total Protein 6.8, Albumin 4.3, Globulin 2.5, Albumin/Globulin Ratio 1.7, Lipase 106, PT 19.0 H, INR 1.82 H, CBC w Diff NO MAN DIFF REQ, RBC 4.61, MCV 91.8, MCH 30.6, RDW 12.8, MPV 9.2, Gran % 77.3 H, Lymphocytes % 13.3 L, Monocytes % 8.3, Eosinophils % 0.7, Basophils % 0.4, Absolute Granulocytes 8.7 H, Absolute Lymphocytes 1.5, Absolute Monocytes 0.9 H, Absolute Eosinophils 0.1 , Absolute Basophils 0, PUBS MCHC 33.4 Assessment/Plan Assessment: 76 yo female with a PMH of atrial fibrillation treated with Coumadin and metoprolol, atrial septal defect status post repair in 1994, Golden's anomaly, osteopenia, bladder cancer status post removal with complaints of abdominal pain and bloody stool. Symptoms started 1 day prior to admission with gradually worsening lower abdominal cramping reaching a 10/10 intesity. This was followed by 12 episodes of liquid diarrhea and eventually red/dark red stool with clots. On arrival to the ED, the cramping was non-radiating, 5/10. She has not tried any medications and there are no exacerbating factors. VS on admission: BP 151/85, HR 92, RR 20, SPO2 98% on RA, T 96.3 Pertinent labs on admission: WBC 11.3, H&H 14.1/42.3, platelets 174K, sodium 141 , potassium 3.8, chloride 106, bicarbonate 27, BUN/CR 14/0.7, glucose 98 INR: 1.82 Plan: 1. SIRS criteria: HR 92, RR 20, colitis, and bright red blood per rectum: DDx: secondary to dehydration, embolic event with a subtherapeutic INR, adhesions related to abd. surgery (hysterectomy, bladder tumor removal. -maintenance fluid NS at 100 mL an hour. Repeat lactic acid despite a normal initial lactic acid level. Type and screen -Clear liquids per recommendation of gastroenterolog (Dr. San). If worsening pain, will make the patient NPO. -If patient spikes fever, obtained blood cultures and consider empiric treatment with ceftriaxone and metronidazole -Heart healthy diet once Dr. San gives approval for diet advancement 2. History of atrial fibrillation on Coumadin -Consult Dr. Mejia to obtain the latest echocardiogram. We'll also obtain his recommendations with regards to maintaining subtherapeutic INR versus bridging with heparin. Status post procedure, Coumadin dosing for INR between 2 and 3 -Holding furosemide and metoprolol at this time. If patient does become tachycardic we'll give her half her normal dose of metoprolol succinate for rate control while monitoring blood pressure 3. History of ASD S/P repair in 1994, Golden's anomaly 4. DVT prophylaxis: Currently on Coumadin. ALPs 5. Full code
[2016-09-07 08:38] LABS: ABSOLUTE BASOPHIL COUNT 0 /CUMM (0.0-0.2); ABSOLUTE EOSINOPHIL COUNT 0.2 /CUMM (0.0-0.7); ABSOLUTE GRANULOCYTE CT 4.8 /CUMM (1.4-6.5); ABSOLUTE LYMPH COUNT 1.3 /CUMM (1.2-3.4); ABSOLUTE MONOCYTE COUNT 0.6 /CUMM (0.10-0.60); BASOPHIL % 0.6 % (0.0-2.0); EOSINOPHIL % 2.4 % (0-5); GRANULOCYTE % 70.2 % (42.2-75.2); HEMATOCRIT 40.6 % (37-47); MEAN CORPUSCULAR HGB 30.8 PG (27.0-31.0); MEAN CORPUSCULAR HGB CONC 33.1 G/DL (33.0-37.0); MEAN CORPUSCULAR VOLUME 92.9 FL (81.0-99.0); MEAN PLATELET VOLUME 9.4 FL (7.4-10.4); PLATELET COUNT 135 /CUMM (130-400); RBC DISTRIBUTION WIDTH 13.1 % (11.5-14.5); RED BLOOD CELL CT 4.37 /CUMM (4.20-5.40); WHITE BLOOD CELL COUNT 6.9 /CUMM (4.8-10.8)
[2016-09-07 08:39] LABS: PT 15.9 SEC (9.4-12.5)
--- NOTE | 2016-09-07 08:54 | NUR ---
LATE ENTRY: PT REPORTS SHE ONLY TAKES ONE CAPSULE- 300 MG, OF GABAPENTIN BID. PT ORDERED 2 CAPSULES IN AM -600 MG AND [address] ROGERS NOTIFIED OF ABOVE. SNO. WILL CONT TO MONITOR.
--- NOTE | 2016-09-07 11:49 | Patient Discharge Instructions ---
Discharge Instructions General Discharge Information You were seen/treated for: Colitis Bright red blood per rectum Watch for these problems: Recurrent bloody stool, dizziness, blurry vision, chest pain or palpitations. Special Instructions: Please follow up with Dr. San for biopsy reports and make an appointment for outpatient colonoscopy. Please follow up with your PCP in 1 week. Recheck INR levels this tuesday and follow up with Dr. Mejia within a week. Diet Continue normal diet: Yes Activity Full Activity/No Limits: Yes (As tolerated) Acute Coronary Syndrome Inclusion Criteria At DC or during hospital stay patient has or had the following: ACS DIAGNOSIS No Discharge Core Measures Meds if any: Prescribed or Continued at Discharge CHARMAINE/ARB if EF <40% No Meds if any: NOT Prescribed or Continued at Discharge Congestive Heart Failure Inclusion Criteria At DC or during hospital stay patient has or had the following: CHF DIAGNOSIS No Discharge Core Measures Meds if any: Prescribed or Continued at Discharge Meds if any: NOT Prescribed or Continued at Discharge Cerebrovascular accident Inclusion Criteria At DC or during hospital stay patient has or had the following: CVA/TIA Diagnosis No Discharge Core Measures Meds if any: Prescribed or Continued at Discharge Meds if any: NOT Prescribed or Continued at Discharge Venous thromboembolism Inclusion Criteria VTE Diagnosis No VTE Type NONE VTE Confirmed by (Test) NONE Discharge Core Measures - Per Current guidelines, there needs to be overlap - treatment for the first 5 days of Warfarin therapy. - If discharged on Warfarin prior to 5 days of - overlap therapy, the patient will need to be - assessed for post discharge needs including - *Post discharge parental anticoagulation - *Warfarin and/or parental anticoagulation education - *Follow up date to check INR post discharge At least 5 days overlap therapy as Inpatient No Meds if any: Prescribed or Continued at Discharge Note: Overlap Therapy is Warfarin and Anticoagulant Meds if any: NOT Prescribed or Continued at Discharge
[2016-09-07 12:22] VITALS: BP 118/76
--- NOTE | 2016-09-07 12:25 | NUR ---
PT OFF THE FLOOR FOR SCHEDULED FLEX SIG PROCEDURE. PENDING RETURN TO FLOOR.
--- NOTE | 2016-09-07 13:38 | Proc Note Colonoscopy ---
Colonoscopy Procedure Medical History: unchanged (see meditech consult) Mental Status: alert/oriented Heart/Lung Eval Prior to Sedation: within normal limits Candidate for Sedation? Yes Date of Last Colonoscopy: Approximately 10 years ago. Procedure Date: 09/07/16 Procedure Type: colonoscopy w/biopsy Control Systems Specialist: Israel San MD ASA Classification: III Indications: Rectal bleeding, colitis on CAT scan. Instrument (Colonoscope): single channel Meds Received: MAC Patient's Tolerance: good Complications: none Extent Reached: proximal transverse colon Prep: good Procedure: After getting written informed consent the patient was placed in the left lateral decubitus position with pulse oximetry, cardiac monitoring, and supplemental oxygen was given. IV sedation was given until the desired effect was achieved. A rectal exam was performed which [was normal]. A high definition variable stiffness Olympus colonoscope was then inserted into the anus and advanced to the proximal transverse colon with little difficulty. Retroflexed views were obtained and photodocumentation was obtained. Close inspection of the colonic mucosa was performed on insertion and withdrawal of the colonoscope with a withdrawal time that was adequate in length to closely inspect all folds and isbell of the colon. Findings: Starting at approximately 30 cm from the anus and extending to approximately 50 cm from the anus there were patchy erythematous changes with an overlying exudate, but there were no deep ulcerations appreciated. The colonic mucosa up to 30 cm and proximal to 50 cm was grossly normal in appearance. There was solid stool appreciated in the proximal sigmoid colons the scope was not advanced further. There were a few scattered diverticula appreciated in the sigmoid colon. The remainder of the visualized colonic mucosa was grossly unremarkable. Biopsies were obtained from the distal transverse colon, and from the areas of inflammation at 30-50 cm from the anus and in the distal sigmoid colon with cold biopsy forceps and were sent to pathology for further evaluation. Retroflexed views in the rectum revealed small internal hemorrhoids. Impression: 1. Findings consistent with mild/resolving ischemic colitis status post biopsies. 2. Sigmoid diverticulosis. 3. Small internal hemorrhoids. 4. Solid stool in the proximal transverse colon as patient only received enemas for preparation so the scope was not advanced further. Recommendations: 1. Her diet should be advanced as tolerated. 2. She should follow up the pathology results me as an outpatient. 3. She was asked to follow-up in the office with me in 2-4 weeks to arrange for a full colonoscopy for screening purposes. 4. If there are no other active issues and she is tolerating a diet consideration should be given to discharge her home later today or in the a.m. 5. There are no absolute contraindications to resuming anticoagulation if medically indicated. Followup Colonscopy Screen In: 1-2 months CC: TOYA GALLARDO,JACQUIE Leach
--- NOTE | 2016-09-07 14:09 | Discharge Summary ---
Visit Information Visit Dates Admission Date: 09/06/16 Discharge Date: 09/07/16 Hospital Course Course Attending Physician: JEANMARIE BAJWA MD Primary Care Physician: JACQUIE PITTMAN MD Hospital Course: 76 y/o lady with a PMH of atrial fibrillation on Coumadin, metoprolol for rate control followed by Dr. Ross and Dr. Mccormick, atrial septal defect status post repair in 1994, Golden's anomaly, osteopenia, bladder cancer status post tumor removal with once a year follow-up at [facility] who presents with complaints of abdominal pain and bloody stool. Symptoms started on Tuesday with lower abdominal discomfort ascribed as a cramping/pinching sensation that worsened as the day progressed to an intensity of 10/10 that declined to 5/10 on arrival in the ED, persistent cramping, nonradiating, no alleviating/exacerbating factors, subsequently followed by 12 episodes of liquid diarrhea and eventually right red/dark red stool with clots. VS on admission: BP 151/85, HR 92, RR 20, SPO2 98% on RA, T 96.3 Pertinent labs on admission: WBC 11.3, H&H 14.1/42.3, platelets 174K, sodium 141 , potassium 3.8, chloride 106, bicarbonate 27, BUN/CR 14/0.7, glucose 98 INR: 1.82 CT Abd and Pelvis: IMPRESSION: Wall thickening and inflammation of the descending colon suggestive of a nonspecific colitis, favoring infectious or inflammatory. Patient was admitted to general medicine floor and treated for following problems Problem list: 1. Colitis 2. Bright red blood per rectum 3. History of atrial fibrillation on Coumadin 4. SIRS criteria: HR 92, RR 20 5. History of ASD S/P repair in 1994, Golden's anomaly Colitis: Etiology could be secondary to dehydration versus embolic event with a subtherapeutic INR versus adhesions with her history of hysterectomy. * patient was started on maintenance fluid NS at 100 mL an hour. Repeat lactic acid was done despite a normal initial lactic acid level. Type and screen done. * Patient was on Clear liquids per recommendation of gastroenterolog (Dr. San) . * S/P sigmoidoscopy(09/07/2016): Impression: 1. Findings consistent with mild/resolving ischemic colitis status post biopsies. 2. Sigmoid diverticulosis. 3. Small internal hemorrhoids. 4. Solid stool in the proximal transverse colon as patient only received enemas for preparation so the scope was not advanced further. Post prodecudre patient was started on regular diet which she tolerated well. Patient will be following up with Dr. San for the biopsy report and also set up an appointment for outpatient colonoscopy. History of atrial fibrillation on Coumadin Pateint usually follow up with for her A.fib. Her INR on discharge day was 1.52. She was given 1 dose of 7.5mg coumadin and was continue with her home dose of 5mg on discharge. Patient was told to repeat her INR in 3 days and follow up with Dr. Ross within a week. Hypertension: Her antihypertensive meds were held in context of bleeding per rectum. Medicines were statred post procedure and patient was discharged on home dose of her antihypertensive meds. History of ASD S/P repair in 1994, Golden's anomaly Allergies: Coded Allergies: shellfish derived (Severe, ANAPHYLAXIS 09/06/16) Penicillins (Intermediate, RASH 09/06/16) Disposition Summary Disposition Principal Diagnosis: Colitis Additional Diagnosis: Atrial Fibrillation Hypertension Discharge Disposition: home or self care Discharge Instructions General Discharge Information Code Status: Full Code Patient's Diet: Heart Healthy Diet Patient's Activity: As Tolerated. Follow-Up Instructions/Appts: Please follow up with Dr. San for biopsy reports and make an appointment for outpatient colonoscopy. Please follow up with your PCP in 1 week. Recheck INR levels this tuesday and follow up with Dr. Ross within a week. Medications at Discharge Discharge Medications: Stop taking the following medications: Warfarin Sodium (Coumadin) 2.5 MG TABLET ORAL Tu Continue taking these medications: Metoprolol Succinate (Metoprolol Succinate) 100 MG TAB.ER.24H 0.5 Tablet ORAL DAILY Qty = 90 Comments: NOT GIVEN Warfarin Sodium (Coumadin) 2.5 MG TABLET 2 Tablet ORAL SuMoWeThFrSa Qty = 180 Comments: SEE OTHER DOCUMENTATION Calcium (Elemental-Fr Calcarb) (Calcium Carbonate) 600 MG CALCIUM (1,500 MG) TABLET 2 Tablet ORAL DAILY Comments: NOT GIVEN Multivitamin (Daily Multiple Vitamin) 1 EACH TABLET 1 Tablet ORAL DAILY Comments: NOT GIVEN Furosemide (Furosemide) 20 MG TABLET 1 Tablet ORAL DAILY Qty = 40 Comments: NOT GIVEN Copies To: TOYA GALLARDO,JACQUIE Leach; Demetrio ROSS MD; ARTIS GALLARDO,ANDRESSA Guzman MD Review Statement Documenting Attending: AYDEE GALLARDO,JEANMARIE
--- NOTE | 2016-09-07 14:19 | NUR ---
PT ARRIVED BACK TO FLOOR. NO DISTRESS. SEE VFS FOR VS. PENDING POSSIBLE D/C TODAY. WILL CONT TO MONITOR.
[2016-09-07 14:33] VITALS: BP 142/78
--- NOTE | 2016-09-07 14:46 | Cons- Cardiology ---
General Information and HPI Consulting Request Date of Consult: 09/07/16 Requested By: JEANMARIE BAJWA MD Reason for Consult: Atrial fibrillation History of Present Illness: The patient is a 76-year-old female who is followed in the office by Dr. Mejia with history of atrial fibrillation, Ebstein's anomaly, atrial septal defect status post repair, bladder cancer status post resection. He presented with complaint of abdominal discomfort and GI bleed. She had recent diarrhea with recurrent episodes of red stool followed by maroon-colored stool. She stopped taking warfarin 2 days prior to admission because of the bleeding. Colonoscopy was performed today which revealed evidence of mild/resolving ischemic colitis. She reports that she is feeling better. No chest pain. No shortness of breath. No diaphoresis. Allergies/Medications Allergies: Coded Allergies: shellfish derived (Severe, ANAPHYLAXIS 09/06/16) Penicillins (Intermediate, RASH 09/06/16) Home Med List: Calcium (Elemental-Fr Calcarb) (Calcium Carbonate) 600 MG CALCIUM (1,500 MG) TABLET 2 TAB PO DAILY SUPPLEMENT (Reported) Furosemide 20 MG TABLET 1 TAB PO DAILY WATER RETENTION (Reported) Metoprolol Succinate 100 MG TAB.ER.24H 0.5 TAB PO DAILY HEART (Reported) Multivitamin (Daily Multiple Vitamin) 1 EACH TABLET 1 TAB PO DAILY VITAMIN SUPPORT (Reported) Warfarin Sodium (Coumadin) 2.5 MG TABLET 2 TAB PO SuMoWeThFrSa BLOOD THINNER (Reported) Warfarin Sodium (Coumadin) 2.5 MG TABLET 1.5 TAB PO Tu BLOOD THINNER ( Reported) Current Medications: Current Medications Sig/Home Start time Last Medication Dose Route Stop Time Status Admin Acetaminophen 650 MG Q6P PRN 09/06 1500 AC 09/06 PO 2019 Calcium Carbonate 1,250 MG DAILY 09/07 1000 AC PO Multivitamins 1 TAB DAILY 09/07 1000 AC Therapeutic PO Oxycodone/ 1 TAB Q6P PRN 09/06 1500 AC Acetaminophen PO Oxycodone/ 2 TAB Q6P PRN 09/06 1500 AC Acetaminophen PO Patient Medication 1 ED .STK-MED ONE 09/07 1426 DC Teaching ED 09/07 1427 Sodium Chloride 1,000 ML Q13H 09/06 1545 DC 09/07 IV 0911 Sodium Phosphate 1 UNIT ONCE ONE 09/07 0930 DC 09/07 NH 09/07 0931 1122 Sodium Phosphate 1 UNIT ONCE ONE 09/07 0930 DC 09/07 NH 09/07 0931 1204 Warfarin Sodium 5 MG Katey@1700 09/08 1700 CAN PO Warfarin Sodium 7.5 MG ONCE ONE 09/07 1430 UNVr PO 09/07 1431 Review of Systems Review of Systems: No rash. No tremor. No syncope. All other systems were reviewed, and were noted to be negative. Past History Travel History Traveled to [place] past 21 day No Medical History Blood Transfusion Hx: Yes Neurological: NONE EENT: allergies Cardiovascular: AFIB, atrial septal defect S/P repair in 1994. Golden's anomaly Respiratory: NONE Gastrointestinal: NONE Hepatic: NONE Renal: NONE Musculoskeletal: NONE Psychiatric: NONE Endocrine: osteopenia Blood Disorders: NONE Cancer(s): bladder cancer Surgical History Surgical History: appendectomy, tonsillectomy Family History Family History Reviewed? Family history is negative for premature coronary artery disease Psychosocial History Where Do You Live? Home Primary Language: Japanese Smoking Status: Never Smoked ETOH Use: denies use Illicit Drug Use: denies illicit drug use Functional Ability ADLs Independent: dressing, eating, toileting, bathing. Ambulation: independent IADLs Independent: shopping, housework, finances, food prep, telephone, transportation , medication admin. Exam & Diagnostic Data Vital Signs and I&O Vital Signs Date Time Temp Pulse Resp B/P B/P Pulse O2 O2 Flow FiO2 Mean Ox Delivery Rate 09/07 1433 98.0 99 18 142/78 98 Room Air 09/07 1222 98.4 98 20 118/76 100 Room Air 09/07 0642 97.8 67 20 140/92 97 Room Air 09/06 2004 98.1 81 19 138/92 97 09/06 1941 82 16 135/87 98 Room Air 09/06 1759 98.8 94 16 135/71 99 Room Air 09/06 1527 98.1 93 15 152/100 99 Room Air Intake & Output 09/07 1600 09/07 0800 09/07 0000 09/06 1600 09/06 0800 09/06 0000 Intake Total 600 150 500 Output Total Balance 600 150 500 Intake, IV 600 150 500 Number 0 Bowel Movements Patient 135 lb 135 lb 135 lb Weight Weight Reported by Patient Reported by Patient Reported by Patient Measurement Method Physical Exam: Gen: The patient is in no acute distress HEENT: Normal nose, ears, and oropharynx. Pupils equal bilaterally. Conjunctiva normal. Neck: Supple with no JVD, no masses, and no thyromegaly Lungs: Clear to auscultation with normal respiratory effort Heart: Irregularly irregular, S1, S2, 2/6 systolic murmur. No peripheral edema, 2+ pulses in the lower extremities bilaterally Abdomen: Soft, nontender, no masses. No hepatomegaly. No splenomegaly Extremities: No clubbing or cyanosis. Normal muscle strength in the upper and lower extremities Skin: Normal skin turgor with no skin ulcers or lesions noted. Neuro: Cranial nerves intact. Sensation intact Psych: Alert and oriented 3 with appropriate affect Labs/Hira Results: Laboratory Tests 09/07 09/06 09/06 0715 1617 1124 Chemistry Lactic Acid (0.7 - 2.1 mmol/L) 0.8 Cancelled Coagulation PT (9.4 - 12.5 SEC) 15.9 H INR (0.90 - 1.19) 1.52 H Hematology CBC w Diff NO MAN DIFF REQ WBC (4.8 - 10.8 /CUMM) 6.9 RBC (4.20 - 5.40 /CUMM) 4.37 Hgb (12.0 - 16.0 G/DL) 13.4 Hct (37 - 47 %) 40.6 MCV (81.0 - 99.0 FL) 92.9 MCH (27.0 - 31.0 PG) 30.8 RDW (11.5 - 14.5 %) 13.1 Plt Count (130 - 400 /CUMM) 135 MPV (7.4 - 10.4 FL) 9.4 Gran % (42.2 - 75.2 %) 70.2 Lymphocytes % (20.5 - 51.1 %) 18.7 L Monocytes % (1.7 - 9.3 %) 8.1 Eosinophils % (0 - 5 %) 2.4 Basophils % (0.0 - 2.0 %) 0.6 Absolute Granulocytes (1.4 - 6.5 /CUMM) 4.8 Absolute Lymphocytes (1.2 - 3.4 /CUMM) 1.3 Absolute Monocytes (0.10 - 0.60 /CUMM) 0.6 Absolute Eosinophils (0.0 - 0.7 /CUMM) 0.2 Absolute Basophils (0.0 - 0.2 /CUMM) 0 PUBS MCHC (33.0 - 37.0 G/DL) 33.1 07/17 0825 Chemistry Sodium (137 - 145 mmol/L) 141 Potassium (3.5 - 5.1 mmol/L) 3.8 Chloride (98 - 107 mmol/L) 106 Carbon Dioxide (22 - 30 mmol/L) 27 Anion Gap (5 - 16) 8 BUN (7 - 17 mg/dL) 14 Creatinine (0.5 - 1.0 mg/dL) 0.7 Estimated GFR (>60 ml/min) > 60 BUN/Creatinine Ratio (7 - 25 %) 20.0 Glucose (65 - 99 mg/dL) 98 Lactic Acid (0.7 - 2.1 mmol/L) 1.1 Calcium (8.4 - 10.2 mg/dL) 9.5 Total Bilirubin (0.2 - 1.3 mg/dL) 1.2 AST (14 - 36 U/L) 36 ALT (9 - 52 U/L) 42 Alkaline Phosphatase (<127 U/L) 62 Total Protein (6.3 - 8.2 g/dL) 6.8 Albumin (3.5 - 5.0 g/dL) 4.3 Globulin (1.9 - 4.2 gm/dL) 2.5 Albumin/Globulin Ratio (1.1 - 2.2 %) 1.7 Lipase (23 - 300 U/L) 106 Coagulation PT (9.4 - 12.5 SEC) 19.0 H INR (0.90 - 1.19) 1.82 H Hematology CBC w Diff NO MAN DIFF REQ WBC (4.8 - 10.8 /CUMM) 11.3 H RBC (4.20 - 5.40 /CUMM) 4.61 Hgb (12.0 - 16.0 G/DL) 14.1 Hct (37 - 47 %) 42.3 MCV (81.0 - 99.0 FL) 91.8 MCH (27.0 - 31.0 PG) 30.6 RDW (11.5 - 14.5 %) 12.8 Plt Count (130 - 400 /CUMM) 174 MPV (7.4 - 10.4 FL) 9.2 Gran % (42.2 - 75.2 %) 77.3 H Lymphocytes % (20.5 - 51.1 %) 13.3 L Monocytes % (1.7 - 9.3 %) 8.3 Eosinophils % (0 - 5 %) 0.7 Basophils % (0.0 - 2.0 %) 0.4 Absolute Granulocytes (1.4 - 6.5 /CUMM) 8.7 H Absolute Lymphocytes (1.2 - 3.4 /CUMM) 1.5 Absolute Monocytes (0.10 - 0.60 /CUMM) 0.9 H Absolute Eosinophils (0.0 - 0.7 /CUMM) 0.1 Absolute Basophils (0.0 - 0.2 /CUMM) 0 PUBS MCHC (33.0 - 37.0 G/DL) 33.4 Diagnostic Data EKG Results EKG tracing is independently reviewed, and reveals atrial fibrillation with ventricular response of 87, right bundle-branch block Other Results CT scan of the abdomen and pelvis: Wall thickening and inflammation of the descending colon suggestive of a nonspecific colitis, favoring infectious or inflammatory. Assessment/Plan Assessment/Plan Assessment: 1. Atrial fibrillation 2. Ebstein's anomaly 3. Atrial septal defect, status post repair 4. GI bleed, possible ischemic colitis Plan: * Restart warfarin if cleared by GI. Would give 7.5 mg today followed by her usual warfarin dose. * Check INR in 3 days after surgery, with dose adjustment * Follow up with Dr. Mejia in one week. Consult Acknowledgment - Thank you for your consult request.
--- NOTE | 2016-09-07 16:54 | NUR ---
3745 PATIENT DISCHARGED TO HOME SELF CARE. ALERT AND ORIENTED X 3. ON ROOM AIR. DENIES SHORTNESS OF BREATH VITAL SIGNS STABLE. DENIES CHEST PAIN. + PULSES. DENIES NUMBNESS/TINGLING SKIN C/D/I. STEADY GAIT. BOWEL SOUNDS AUDIBLE. NO DISCOMFORT/DISTRESS. IV REMOVED. VERBALIZED UNDERSTANDING OF DISCHARGE INSTRUCTIONS.
== END 2016-09-07 16:45 ==
LOC: ERH 07:54 → ERHI 14:07 → 2NB 14:07 → ENRESERV 18:53 → ENTRNSPT 19:43 → 2NB 19:51 → CMPTRNSPT 20:15 → ENPENDDIS 09-07 15:15 → 2NB 09-07 16:45
PROVIDERS: Emergency Medicine; Internal Medicine; ADMIT Internal Medicine
DX: K55.9 Vascular disorder of intestine, unspecified (principal); I48.91 Unspecified atrial fibrillation; Z79.01 Long term (current) use of anticoagulants; I10 Essential (primary) hypertension; M85.80 Other specified disorders of bone density and structure, unspecified site; Z85.51 Personal history of malignant neoplasm of bladder; K64.8 Other hemorrhoids; K57.30 Diverticulosis of large intestine without perforation or abscess without bleeding; I25.10 Atherosclerotic heart disease of native coronary artery without angina pectoris; Z95.1 Presence of aortocoronary bypass graft; Z86.73 Personal history of transient ischemic attack (TIA), and cerebral infarction without residual deficits
CPT/HCPCS: 6040; 36415; 74177; 88305; 93005; 93010; 96360; G0378; J7040